=== PATIENT | female | born 1990 | race Caucasian/White ===

== ENCOUNTER 2016-08-06 21:40 | Emergency (ER) | payer MEDICAID ==
[~2016-08-06] VITALS: Ht 175.3 cm; Wt 113.4 kg
[2016-08-06] MEDS ORDERED: ONDANSETRON HCL 4 MG/2 ML VIAL IM ONE (23:15)
[2016-08-06] MEDS ORDERED: HYDROmorphone HCL 2 MG/ML VL IM ONE (23:15)
[2016-08-06 23:23] VITALS: BP 131/98
[2016-08-06 23:58] LABS: Urine RBC None Seen /hpf (0 - 4)
[2016-08-07 00:23] LABS: Urine Bilirubin Negative (Negative); Urine Blood Negative /uL (Negative); Urine Color Yellow (Yellow); Urine Glucose Normal (Normal); Urine Ketone Negative (Negative); Urine Nitrite Negative (Negative); Urine Squamous Epithelial Cell MOD /hpf (<5); Urine Urobilinogen Normal (Negative)
== END 2016-08-07 00:50 | disposition home or self-care (01) ==
LOC: ER 22:54
DX: O26.891 Other specified pregnancy related conditions, first trimester (principal); M79.1 Myalgia; M54.16 Radiculopathy, lumbar region; O99.331 Smoking (tobacco) complicating pregnancy, first trimester; Z33.1 Pregnant state, incidental
CPT/HCPCS: 81001; 81025; 96372; 99284; J1170; J2405